=== PATIENT | male | born 1995 | race Caucasian/White ===

== ENCOUNTER 2016-09-18 13:32 | Emergency (ER) | payer MEDICAID ==
[2016-09-18 13:52] VITALS: RESP 16; TEMP 98.4; O2SAT 97
[2016-09-18] MEDS ORDERED: NS 1,000 ML IV ONE (14:30)
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
[2016-09-18] MEDS ORDERED: IOPAMIDOL (ISOVUE 370) 100 ML BTL IV ONE (14:37)
[2016-09-18 16:02] VITALS: BP 138/77; PULSE 69
== END 2016-09-18 16:02 | disposition home or self-care (01) ==
DX: S09.90XA Unspecified injury of head, initial encounter (principal); S61.211A Laceration without foreign body of left index finger without damage to nail, initial encounter; V18.0XXA Pedal cycle driver injured in noncollision transport accident in nontraffic accident, initial encounter; Y99.8 Other external cause status; Y93.55 Activity, bike riding
CPT/HCPCS: 82947-QW; Q9967